=== PATIENT | male | born 1990 | race Caucasian/White ===

== ENCOUNTER 2020-09-29 15:07 | Outpatient (CLI) | payer BC, SELFPAY ==
--- NOTE | ~2020-09-29 | XR_ITS ---
XR abdomen/kub 1V 09/29/2020 15:29 INDICATION: Melena TECHNIQUE: KUB COMPARISON: No prior studies for comparison. FINDINGS: Bowel gas pattern is normal. There are surgical clips in the right mid abdomen. There is no evidence of free air, mass, organomegaly, ascites or obstruction. No abnormal calculi are seen. Th e bones appear intact. IMPRESSION: 1: No acute abdominal abnormality identified. Reviewed, dictated and finalized at location B. [employer] [employer]
== END 2020-09-29 15:08 | disposition home or self-care (01) ==
PROVIDERS: PCP Family Medicine; Visit Provider Family Medicine
DX: K92.1 Melena (principal)
CPT/HCPCS: 74018

== ENCOUNTER 2021-07-06 00:24 | Day surgery (SDC) | payer BC, SELFPAY ==
[2021-06-21 10:36] VITALS: BMI 29.9
[2021-07-06 10:40] VITALS: BP 129/82; PULSE 61; RESP 18; TEMP 36.4; O2SAT 99; BMI 29.5
--- NOTE | 2021-07-06 11:02 | WPDANESEPPF ---
Anes - Initial Pre Proc Eval Procedure: Operation Date: 07/06/21 12:00 Proposed Procedures p Colonoscopy - Yemi Hansen MD Date/Time: 07/06/21 11:02 Surgeon: Yemi Hansen MD Pre Op Diagnosis: melena Patient Data Age: 30 Gender: M Height: 1.83 m Weight: 98.8 kg Last Vital Signs Temp 36.4 C 07/06/21 10:40 Pulse 61 07/06/21 10:40 Resp 18 07/06/21 10:40 BP 129/82 07/06/21 10:40 Pulse Ox 99 07/06/21 10:40 Allergies Allergy/AdvReac Type Severity Reaction Status Date / Time No Known Allergies Allergy Verified 07/06/21 10:55 Home Medications Medication Instructions Recorded Confirmed Type dextroamphetamine-amphetamine 5 mg 5 mg PO BID #60 tablet 07/04/21 07/06/21 Rx tablet Patient hx anesthesia problems: none Family hx anesthesia problems: none PMFSH Past Medical History Medical History ADD (attention deficit disorder) without hyperactivity Surgical History Surgical History Appendicitis History of appendectomy Family History Family History Father Primary cancer of parotid gland Sibling Sarcoma Social History Social History Social History: Smoking status: Never smoker Second hand tobacco smoke exposure: No Alcohol intake: current Drinks per week: 5 Alcohol use details: Occasionally Substance use: never Substance use type: does not use Living arrangements: with family Gender identity (if verbalized by the patient): Male Sexual Orientation (if Verbalized by the Patient): Straight or Heterosexual Spiritual care concerns: No Anes - Eval Final PreProcedure Day of Procedure 07/06/21 11:02 Patient weight: overweight Heart: regular rate and rhythm Lungs: clear to auscultation Airway: Mallampati scale class II Neurological: alert and oriented Last oral intake: >/= 8 hours Emergent: no Anesthetic plan: proceed Anesthesia type and monitoring: general GIVS and standard monitoring Informed Consent: The patient's anesthetic plan and its attendant risks and benefits were discussed with the patient/family/POA. Questions were solicited and answers provided to the satisfaction of the patient/family/POA.
[2021-07-06] MEDS: LACTATED RINGERS 1,000 ML 150 ML IV CONT (11:19)
--- NOTE | 2021-07-06 11:23 | PM.HPGS ---
History of Present Illness History of Present Illness Consent: Risks, benefits, and alternatives have been discussed and questions answered. Patient agrees to proceed with procedure. Chief complaint: melena Narrative: Jermaine Martinez is a 30 year old male with intermittent rectal bleeding for 6 months, never had colonoscopy Review of Systems Constitutional: Constitutional: Denies headache(s) and Denies weakness Eyes: Eyes: Denies blurry vision ENT: Reports Normal hearing present, Denies headache(s) and Denies neck pain Cardiovascular: Cardiovascular: Denies chest pain and Denies dyspnea Respiratory: Respiratory: Denies dyspnea Gastrointestinal: Gastrointestinal: Reports no additional gastrointestinal complaints Genitourinary: Genitourinary: Denies dysuria Musculoskeletal: Musculoskeletal: Denies neck pain Integumentary/Breasts: Skin/Breast: Denies dry skin Neurologic: Reports Normal hearing present, Denies headache(s) and Denies weakness Psychiatric: Psychiatric: Denies anxiety Endocrine: Endocrine: Denies change in body appearance Hematologic/Lymphatic: Hematologic/Lymphatic: Denies easy bleeding Allergic/Immunologic: Allergic/Immunologic: Denies urticaria PMFSH Past Medical History Medical History ADD (attention deficit disorder) without hyperactivity Surgical History Surgical History Appendicitis History of appendectomy Family History Family History Father Primary cancer of parotid gland Sibling Sarcoma Social History Social History Social History: Smoking status: Never smoker Second hand tobacco smoke exposure: No Alcohol intake: current Drinks per week: 5 Alcohol use details: Occasionally Substance use: never Substance use type: does not use Living arrangements: with family Gender identity (if verbalized by the patient): Male Sexual Orientation (if Verbalized by the Patient): Straight or Heterosexual Spiritual care concerns: No Meds Home Medications and Allergies Home Medications Medication Instructions Recorded Confirmed Type dextroamphetamine-amphetamine 5 mg 5 mg PO BID #60 tablet 07/04/21 07/06/21 Rx tablet Allergies Allergy/AdvReac Type Severity Reaction Status Date / Time No Known Allergies Allergy Verified 07/06/21 10:55 Vital Signs Vital Signs - 24 hr 07/06/21 10:40 Temperature 97.6 F Pulse Rate 61 Respiratory Rate 18 Blood Pressure 129/82 Pulse Oximetry 99 Exam Const: General: comfortable and no acute distress HENMT: General nose exam: Normal nares present Eyes: General: appearance normal, both eyes and all related structures Neck: Neck: no JVD Resp: Auscultation: clear to auscultation bilaterally Cardio: Rate: regular rate Rhythm: regular rhythm GI: Inspection: non-distended GI Palp: Yes Soft to palpation Skin: General skin exam: normal color Neuro: General: gait normal Speech: normal speech Extrem: General: normal to inspection Psych: Mental Status: mental status grossly normal Assessment and Plan Assessment and plan (1) Blood in stool: Code(s): K92.1 - Melena Status: Acute Assessment and Plan: colonoscopy
[2021-07-06 11:43] VITALS: BP 118/79; PULSE 52; RESP 24; O2SAT 100
[2021-07-06 11:53] VITALS: BP 123/83; PULSE 69; RESP 21; O2SAT 100
[2021-07-06 12:03] VITALS: BP 130/79; PULSE 72; RESP 21; O2SAT 100
== END 2021-07-06 12:10 | disposition home or self-care (01) ==
PROVIDERS: PCP Family Medicine; Visit Provider Internal Medicine Gastroenterology
PROC: 0DJD8ZZ Inspection of Lower Intestinal Tract, Via Natural or Artificial Opening Endoscopic (ICD-10-PCS; CPT 45378; principal; 2021-07-06 12:00)
DX: K92.1 Melena (principal); K57.30 Diverticulosis of large intestine without perforation or abscess without bleeding; K64.8 Other hemorrhoids; F98.8 Other specified behavioral and emotional disorders with onset usually occurring in childhood and adolescence
CPT/HCPCS: 45378; J2704; J7120